=== PATIENT | female | born 1995 | race African-American/Black ===

== ENCOUNTER 2022-05-22 11:18 | Emergency (ER) | payer MEDICAID ==
[~2022-05-22] VITALS: Ht 157.5 cm; Wt 60.0 kg
[~2022-05-22 11:18] MED LIST: FERR-63 PO; IBUP-779 PO; MULT-1116 PO
[2022-05-22] MEDS ORDERED: DEXAMETHASONE 10 MG/ML VIAL IV ONE (13:00)
[2022-05-22] MEDS ORDERED: KETOROLAC 15MG/ML VIAL IV ONE (13:00)
[2022-05-22] MEDS ORDERED: LIDOCAINE HCL/EPINEPHRINE 1%-EPI 1:100,000 50 ML VIAL INFIL ONE (13:00)
[2022-05-22] MEDS ORDERED: TETRACAINE/BENZOCAINE/BUTAMBEN 20 GM SPRAY MM SCH (13:00)
[2022-05-22] MEDS: AMPICILLIN SOD/SULBACTAM NA 3 G in SODIUM CHLORIDE 0.9% 100 ML IV SCH ×2 (14:15→19:00)
[2022-05-22 14:19] LABS: CHLORIDE 107 mEq/L (98-107)
[2022-05-22 14:20] LABS: BASOPHILS % 0.1 % (0.0-2.0); HEMATOCRIT. 41.5 % (36.0-48.0); HEMOGLOBIN. 13.7 g/dL (12.0-16.0); LYMPHOCYTES % 14.6 % (20.0-50.0); MEAN CORPUSCULAR HEMOGLOBIN 29.5 pg (28.0-32.0); MEAN PLATELET VOLUME 7.6 fl (7.4-10.4); NEUTROPHILS % 78.3 % (40.0-76.0); PLATELET 213 x1000/uL (130-400); RED BLOOD CELL COUNT 4.66 mill/uL (4.2-5.4); RED CELL DISTRIBUTION WIDTH 15.4 % (11.6-14.6)
[2022-05-22 14:21] LABS: INR 1.2; PROTHROMBIN TIME 12.5 sec (9.6-11.0)
[2022-05-22 14:34] LABS: HCG SCREEN NEGATIVE
[2022-05-22 14:44] LABS: MONOTEST NEGATIVE (NEGATIVE)
[2022-05-22] MEDS ORDERED: SODIUM CHLORIDE 0.9% 1,000 ML IV ONE (15:15)
[2022-05-22 15:36] LABS: CLARITY URINE CLEAR (CLEAR); COLOR URINE YELLOW (YELLOW); KETONES URINE TRACE (NEGATIVE); LEUKOCYTE ESTERASE URINE 1+ (NEGATIVE); NITRITE URINE NEGATIVE (NEGATIVE); OCCULT BLOOD URINE NEGATIVE (NEGATIVE); PH URINE 6.5 (4.5-8.0); PROTEIN URINE TRACE (NEGATIVE); SPECIFIC GRAVITY URINE 1.015 (1.005-1.030)
[2022-05-22] MEDS ORDERED: ONDANSETRON HCL 4MG/2ML INJ IV STA (15:55)
[2022-05-22] MEDS ORDERED: MORPHINE SULFATE 4 MG/ML CPJ (NOT FOR IM USE) IV STA (15:55)
[2022-05-22] MEDS ORDERED: IOHEXOL-300 100 ML BOTTLE ONE (16:02)
[2022-05-22] MEDS ORDERED: MORPHINE SULFATE 4 MG/ML CPJ (NOT FOR IM USE) IV ONE (18:45)
[2022-05-23] MEDS ORDERED: MORPHINE SULFATE 4 MG/ML CPJ (NOT FOR IM USE) IV ONE (08:00)
[2022-05-23] MEDS ORDERED: MORPHINE SULFATE 4 MG/ML CPJ (NOT FOR IM USE) IV SCH (08:15)
[2022-05-23] MEDS ORDERED: MORPHINE SULFATE 2 MG/ML CPJ (NOT FOR IM USE) IV ONE (11:45)
[2022-05-23] MEDS ORDERED: MORPHINE SULFATE 2 MG/ML CPJ (NOT FOR IM USE) IV NR (15:00)
[2022-05-23] MEDS ORDERED: DEXAMETHASONE 10 MG/ML VIAL IV ONE (17:30)
[2022-05-23] MEDS: AMPICILLIN SOD/SULBACTAM NA 3 G in SODIUM CHLORIDE 0.9% 100 ML IV SCH ×2 (17:33→17:36)
[2022-05-23 17:51] VITALS: BP 107/69
== END 2022-05-23 18:00 ==
LOC: ER 11:18
DX: J36 Peritonsillar abscess (principal); E87.1 Hypo-osmolality and hyponatremia; Z20.822 Contact with and (suspected) exposure to COVID-19
CPT/HCPCS: 36415; 70491; 71045; 80053; 81003; 81025; 84703; 85025; 85610; 86308; 87040; 87070; 87426; 87430; 96361; 96365; 96366; 96375; 96376; 99285; C9803; J0295; J1100; J1885; J2270; J2405; J7030; J7050; Q9967